=== PATIENT | male | born 1980 | race Two or more races ===

== ENCOUNTER 2024-04-18 21:00 | Emergency (ER) | payer SELFPAY ==
[~2024-04-18] VITALS: Ht 170.2 cm; Wt 80.0 kg
[2024-04-18] MEDS: THIAMINE 100mg/ml INJ (200mg/2ml VIAL) IV ONE (21:15)
[2024-04-18 21:22] LABS: Basophils # (auto) 0 10 ^3/uL (0-0.2); Basophils % (auto) 0.8 % (0.0-2.0); Eosinophils # (auto) 0 10 ^3/uL (0-0.8); Eosinophils % (auto) 0.7 % (0.0-7.0); Hemoglobin 16.5 g/dL (13.5-17.5); Lymphocytes # (auto) 2.2 10 ^3/uL (0.4-5.4); Lymphocytes % (auto) 38.1 % (10.0-50.0); Mean Corpuscular Hemoglobin 30.8 pg (28.0-32.0); Mean Corpuscular Hgb Conc. 33.7 g/dL (32.0-36.0); Mean Corpuscular Volume 91.5 fL (80.0-100.0); Monocytes # (auto) 0.3 10 ^3/uL (0-1.3); Monocytes % (auto) 4.5 % (0.0-12.0); Neutrophils # (auto) 3.2 10 ^3/uL (1.6-8.6); Neutrophils % (auto) 55.9 % (37.0-80.0); Nucleated Red Blood Cells % 0.1 %; Red Blood Cells 5.35 10^6/uL (4.5-5.90); Red Cell Distribution Width 14.3 % (11.8-14.3); White Blood Cell 5.8 10^3/uL (4.4-10.8)
[2024-04-18] MEDS: FOLIC ACID 1 MG TAB PO ONE (21:47)
[2024-04-18] MEDS: MVI in SODIUM CHLORIDE 0.9% 1,010 ML ONE (21:59)
[2024-04-18] MEDS ORDERED: FOLIC ACID 1 MG, MAGNESIUM SULF SDV 50% 8 MEQ, MULTIPLE VITAMIN 10 ML, THIAMINE INJ 100... INJ SCH (22:00)
[2024-04-18] MEDS ORDERED: FOLIC ACID 1 MG, MULTIPLE VITAMIN 10 ML, THIAMINE INJ 100 MG in SODIUM CHLORIDE 0.9% 1,... INJ SCH ×2 (22:00→22:15)
[2024-04-18] MEDS: ONDANSETRON HCL 4 MG/2 ML VIAL IV ONE (22:08)
[2024-04-18] MEDS: FOLIC ACID 1 MG, MULTIPLE VITAMIN 10 ML, THIAMINE INJ 100 MG in SODIUM CHLORIDE 0.9% 1,... INJ SCH (22:09)
[2024-04-18] MEDS: FOLIC ACID 1 MG, MULTIPLE VITAMIN 10 ML, THIAMINE INJ 100 MG in SODIUM CHLORIDE 0.9% 1,... INJ ONE (22:15)
[2024-04-19 07:16] VITALS: BP 103/74; TEMP 98.5
[2024-04-19 07:17] VITALS: PULSE 110; RESP 16; O2SAT 98
[2024-04-19] MEDS ORDERED: FOLIC ACID 1 MG, MAGNESIUM SULF SDV 50% 8 MEQ, MULTIPLE VITAMIN 10 ML, THIAMINE INJ 100... INJ SCH (18:00)
== END 2024-04-19 06:06 | disposition home or self-care (01) ==
LOC: ER 21:00
DX: F10.129 Alcohol abuse with intoxication, unspecified (principal); Y90.0 Blood alcohol level of less than 20 mg/100 ml
CPT/HCPCS: 36415; 80320; 83880; 85025; 93005; 96365; 96366; 96375; 99284; J2405; J3411; J3475; J7030